=== PATIENT | female | born 1985 | race Caucasian/White ===

== ENCOUNTER 2018-03-10 21:11 | Emergency (ER) | payer SELFPAY ==
[2018-03-10 21:57] VITALS: TEMP 98.4; O2SAT 100
[2018-03-10 22:15] LABS: HEMOGLOBIN 14.6 g/dL (11.0-16.0); MEAN CORPUSCULAR HEMOGLOBIN 31.5 pg (27.0-31.0); MEAN CORPUSCULAR HGB CONC 33.8 g/dL (33.0-37.0); MEAN PLATELET VOLUME 9.9 fL (7.2-11.7); RBC 4.63 Mil/uL (3.80-5.20); RED CELL DISTRIBUTION WIDTH 13.5 % (11.5-14.5); WHITE BLOOD COUNT 8.2 K/uL (4.8-10.8)
--- NOTE | 2018-03-10 22:15 | C.PDOC ---
History Of Present Illness Family reports that patient has history of epilepsy, has seizures constantly, however today she had a "very strong" witnessed grand mal seizure. Seizure lasted about a minute and subsided without any intervention. Currently patient has no complaints, parents just note that she is more tired than usual. Patient has a brain stimulator, however it has not had a working battery for two years. They have been in the [place] visiting for 4 months, and are going back to [facility] in 3 weeks. Her neurologist is in [facility]. Time Seen by Provider: 03/10/18 21:38 Chief Complaint (Nursing): Seizure Past Medical History Vital Signs: Last Vital Signs Temp 98.4 F 03/10/18 21:45 Pulse 78 03/10/18 21:45 Resp 14 03/10/18 21:45 BP 124/86 03/10/18 21:45 Pulse Ox 100 03/10/18 21:45 - Medical History PMH: Seizures (since pt was 8yrs old) Family History: States: No Known Family Hx - Social History Hx Alcohol Use: No Hx Substance Use: No - Immunization History Hx Tetanus Toxoid Vaccination: No Hx Influenza Vaccination: No Hx Pneumococcal Vaccination: No Review Of Systems Except As Marked, All Systems Reviewed And Found Negative. Constitutional: Negative for: Fever Eyes: Negative for: Vision Change Cardiovascular: Negative for: Chest Pain, Palpitations Respiratory: Negative for: Shortness of Breath Gastrointestinal: Negative for: Nausea, Vomiting, Abdominal Pain, Diarrhea Genitourinary: Negative for: Dysuria Skin: Negative for: Rash Neurological: Positive for: Seizures. Negative for: Weakness, Numbness, Change in Speech, Headache, Dizziness Physical Exam - Physical Exam Appears: Non-toxic Skin: Normal Color, Warm, Dry Head: Atraumatic Eye(s): bilateral: Normal Inspection Oral Mucosa: Moist Tongue: Normal Appearing Lips: Normal Appearing Cardiovascular: Rhythm Regular Respiratory: Normal Breath Sounds Gastrointestinal/Abdominal: Soft, No Tenderness, No Mass, No Distention, No Guarding Extremity: Normal ROM Neurological/Psych: Oriented x3, Normal Speech, Normal Motor, Normal Sensation ED Course And Treatment - Laboratory Results Result Diagrams: 03/10/18 22:11 03/10/18 22:11 O2 Sat by Pulse Oximetry: 100 Medical Decision Making Medical Decision Making: Patient with no further seizure activity throughout ED course. Became progressively less drowsy. AAOx3. In no acute distress. Family requesting refill of phenobarbital 100mg daily, which was provided. Stable for discharge home. Patient to follow up with neurology when she returns home. Disposition - Disposition Disposition: HOME/ ROUTINE Disposition Time: 00:28 Condition: GOOD Additional Instructions: JUWAN PRECIADO, thank you for letting us take care of you today. Your provider was Yelitza Conklin MD and you were treated for SEIZURE. The emergency medical care you received today was directed at your acute symptoms. If you were prescribed any medication, please fill it and take as directed. It may take several days for your symptoms to resolve. Return to the Emergency Department if your symptoms worsen, do not improve, or if you have any other problems. Please contact your doctor or call one of the physicians/clinics you have been referred to that are listed on the Patient Visit Information form that is included in your discharge packet. Bring any paperwork you were given at discharge with you along with any medications you are taking to your follow up visit. Our treatment cannot replace ongoing medical care by a primary care provider outside of the emergency department. Thank you for allowing the [facility] team to be part of your care today. If you had an X-Ray or CT scan: A Radiologist will review the ED reading if any change in treatment is needed we will contact you. If you had a blood, urine, or wound culture: It will take several days for the results, if any change in treatment is needed we will contact you. If you had an STI test: It will take 48 hours for the results. Please call after 1 week if you have not heard back. Prescriptions: Phenobarbital 100 mg PO DAILY #20 tablet Instructions: Seizures, Adult (DC) Forms: [employer] ([place] Islander) Print Language: ECUADOREAN - Clinical Impression Clinical Impression: Seizure
[2018-03-10 22:28] LABS: BLOOD UREA NITROGEN 17 mg/dL (7-17); CALCIUM 9.2 mg/dl (8.6-10.4); GFR NON-AFRICAN AMERICAN > 60
[2018-03-11 00:34] VITALS: BP 106/75; PULSE 62; RESP 16
== END 2018-03-11 00:57 | disposition home or self-care (01) ==
LOC: C.ER 21:11
DX: R56.9 Unspecified convulsions (principal)